=== PATIENT | male | born 1950 | race Caucasian/White ===

== ENCOUNTER → 2024-03-23 | Outpatient (CLI) | payer MEDICARE, BC, SELFPAY ==
[2024-03-23 15:48] LABS: Collection Type, Urine Clean Catch; Squamous Epithelial Cell,Urine 0 /hpf (0-5)
[2024-03-23 16:22] LABS: Basophils # (Auto) 0.1 Thou/mm3 (0.0-0.2); Basophils % (Auto) 1 % (0-2.5); Eosinophils # (Auto) 0.5 Thou/mm3 (0.0-0.5); Eosinophils % (Auto) 7 % (0-10); Hematocrit 38.7 % (41.0-53.0); Hemoglobin 12.8 g/dL (13.5-16.0); Immature Granulocytes % (Auto) 0 % (0-0); Immature Granulocytes Auto 0.01 Thou/mm3 (0.00-0.00); Lymphocytes # (Auto) 0.8 Thou/mm3 (1.0-4.8); Lymphocytes % (Auto) 11 % (10-50); Mean Corpuscular HGB Conc 33.1 g/dl (31.0-37.0); Mean Corpuscular Hemoglobin 29.9 pg (25.0-35.0); Mean Corpuscular Volume 90 fL (80-100); Monocytes # (Auto) 0.7 Thou/mm3 (0.0-0.8); Monocytes % (Auto) 11 % (0-12); Neutrophils # (Auto) 4.7 Thou/mm3 (1.8-7.7); Neutrophils % (Auto) 70 % (37-80); Nucleated Red Blood Cell % 0 /100 WBC (0); Platelet Count 266 Thou/mm3 (140-440); RDW Standard Deviation 44.1 fL (35.1-43.9); Red Blood Count 4.28 Miln/mm3 (4.50-5.90); White Blood Count 6.8 Thou/mm3 (3.8-10.6)
[2024-03-23 16:28] LABS: Bilirubin,Urine Negative (Negative); Blood,Urine Negative (Negative); Clarity,Urine Clear (Clear/Hazy); Color,Urine Lt-Yellow (Lt Yel-Yel); Culture Indicated,Urine Not Indicated; Glucose, Urine Negative (Negative); Ketones,Urine Negative (Negative); Leukocyte Esterase,Urine Negative (Negative); Nitrite,Urine Negative (Negative); Protein,Urine Negative (Neg - Trace); RBC,Urine 2 /hpf (0-3); Specific Gravity,Urine 1.015 (1.001-1.035); Urobilinogen,Urine Negative mg/dL (0.0-1.0); WBC,Urine 1 /hpf (0-5)
[2024-03-23 16:37] LABS: Creatinine MALB Rnd Ur 99 mg/dL (30-125); Microalbumin Creat Ratio 15 mg/gCrea (<30); Microalbumin, Random Urine 15 mg/L (0-300)
[2024-03-23 16:50] LABS: Iron 68 mcg/dL (65-175); Percent Iron Saturation 18 % (20-55); Total Iron Binding Capacity 368 mcg/dL (250-425); Unsaturated Iron Binding 300 (225-295)
[2024-03-23 16:51] LABS: Albumin, Serum 4.5 gm/dL (3.4-4.8); Anion Gap 6 (7-16); BUN/Creatinine Ratio 14 Ratio (12-20); Blood Urea Nitrogen 19 mg/dL (9-23); Calcium 9.5 mg/dL (8.3-10.6); Calcium (Corrected) 9.5 mg/dL (8.5-10.1); Carbon Dioxide 27.3 mMol/L (20.0-31.0); Chloride 105 mMol/L (98-107); Creatinine (Component) 1.4 mg/dL (0.6-1.3); Glucose 87 mg/dL (74-106); Osmolality,Calculated 276 (275-295); Phosphorous 4.1 mg/dL (2.4-5.1); Potassium 4.5 mMol/L (3.4-5.1); Sodium 138 mMol/L (136-145); eGFR 54 See Note
== END | disposition home or self-care (01) ==
LOC: COPL 15:02
PROVIDERS: PCP Specialist; Referring Provider Specialist; Visit Provider Specialist
DX: N18.9 Chronic kidney disease, unspecified (principal)
CPT/HCPCS: 36415; 80069; 81001; 82043; 82570; 83540; 83550; 85025

== ENCOUNTER 2024-04-28 06:40 | Day surgery (SDC) | payer MEDICARE, BC, SELFPAY ==
[2024-04-26 08:50] VITALS: BMI 28.7
--- NOTE | 2024-04-26 09:11 | SUR.PREOP ---
Pt has a cyst removed on his back, last Thrusday and has sutures and dressing on.
[2024-04-26 10:39] LABS: Basophils # (Auto) 0.1 Thou/mm3 (0.0-0.2); Basophils % (Auto) 1 % (0-2.5); Eosinophils # (Auto) 0.5 Thou/mm3 (0.0-0.5); Eosinophils % (Auto) 8 % (0-10); Hematocrit 41.5 % (41.0-53.0); Hemoglobin 13.7 g/dL (13.5-16.0); Immature Granulocytes % (Auto) 0 % (0-0); Immature Granulocytes Auto 0.01 Thou/mm3 (0.00-0.00); Lymphocytes # (Auto) 0.7 Thou/mm3 (1.0-4.8); Lymphocytes % (Auto) 11 % (10-50); Mean Corpuscular Hemoglobin 29.6 pg (25.0-35.0); Mean Corpuscular Volume 90 fL (80-100); Monocytes # (Auto) 0.7 Thou/mm3 (0.0-0.8); Monocytes % (Auto) 11 % (0-12); Neutrophils # (Auto) 4.5 Thou/mm3 (1.8-7.7); Neutrophils % (Auto) 69 % (37-80); Nucleated Red Blood Cell % 0 /100 WBC (0); Platelet Count 245 Thou/mm3 (140-440); RDW Standard Deviation 42.7 fL (35.1-43.9); Red Blood Count 4.63 Miln/mm3 (4.50-5.90); White Blood Count 6.6 Thou/mm3 (3.8-10.6)
[2024-04-26 10:54] LABS: Alanine Aminotransferase 21 U/L (10-49); Albumin, Serum 4.8 gm/dL (3.4-4.8); Albumin/Globulin Ratio 1.8 (1.2-2.2); Alkaline Phosphatase 112 U/L (46-116); Anion Gap 5 (7-16); Aspartate Amino Transferase 27 U/L (0-34); BUN/Creatinine Ratio 13 Ratio (12-20); Bilirubin,Total 0.5 mg/dL (0.3-1.2); Blood Urea Nitrogen 21 mg/dL (9-23); Calcium 9.5 mg/dL (8.3-10.6); Calcium (Corrected) 9.5 mg/dL (8.5-10.1); Carbon Dioxide 26.8 mMol/L (20.0-31.0); Chloride 105 mMol/L (98-107); Creatinine (Component) 1.6 mg/dL (0.6-1.3); Estimated Creatinine Clearance 46.5 mL/min (>60); Globulin 2.6 gm/dL (2.3-3.5); Glucose 106 mg/dL (74-106); Osmolality,Calculated 276 (275-295); Potassium 4.1 mMol/L (3.4-5.1); Sodium 137 mMol/L (136-145); Total Protein 7.4 gm/dL (5.7-8.2); eGFR 46 See Note
[2024-04-26 11:22] LABS: INR 0.9 (0.9-1.3); Partial Thromboplastin Time 25.9 Seconds (22.0-36.0); Prothrombin Time 10.4 Seconds (9.0-12.2)
--- NOTE | 2024-04-26 14:51 | SUR.PREOP ---
Cardiac records reviewed with Dr Frey.
--- NOTE | 2024-04-27 15:26 | SUR.PREOP ---
Pt notified to come in at 0630 tomorrow for surgery.
[2024-04-28] VITALS (12 sets, daily range): BP systolic 120–159; BP diastolic 71–85; PULSE 53–69; RESP 14–23; TEMP 36.4–37; O2SAT 94–97; BMI 28.9
[2024-04-28] MEDS: ALBUTEROL RT 2.5 MG/3 ML NEBU INH (08:19)
[2024-04-28] MEDS: RINGERS LACTATED 1000 ML 1,000 ML 20 ML IV (08:30)
--- NOTE | 2024-04-28 09:50 | ESOP_ITS ---
Date of Procedure 04/28/24 Pre Op Diagnosis Symptomatic varicose veins right lower extremity Post Op Diagnosis Same as preop diagnosis Procedure Varicose vein excisions right lower extremity through 38 separate incisions Findings All marked varicose veins were either removed or disrupted Procedure Description With the patient standing the preop area all varicose veins to be removed were carefully marked with a sharpie pen. The patient was brought to the operating room and general anesthesia was established. The right lower extremity s terilely prepped and draped. The varicose vein excision procedure was performed by making a small skin kelli in the marked areas with a #11 blade then bluntly enlarging the incision with a small mosquito clamp and sequentially excising or disrupting the veins. After all veins had been either removed or disrupted hemostasis was obtained, the leg was cleaned, the wounds were reapproximated with Steri-Strips and a dressing of sterile gauze Curlex and an Darrin wrap was then placed the patient woke well from anesthesia was moved to recovery in stable condition Anesthesia other (Laryngeal mask anesthesia) Pathology / specimen Other (Varicose veins) Estimated Blood Loss 125 Condition Stable Disposition PACU Surgeon Jr Lucas MD Surgical Staff Operation Date: 04/28/24 08:30 Case Staff Anesthesiologist: Lanre Yin
--- NOTE | 2024-04-28 10:09 | SUR.PHASEI ---
pt received from OR in recovery bay 1. pt asleep but responds to voice, breathing unlabored on 8l oxymask, v/s stable. pt dressing to right lower extremity cdi. report received from Dr. Yin and Chloe CHANG.
--- NOTE | 2024-04-28 10:36 | SUR.PHASEI ---
pt able to tolerate oral fluids without difficulty swallowing or nausea/vomiting.
--- NOTE | 2024-04-28 12:10 | SUR.PHASEII ---
1148: pt resting comfortably in [facility], VS stable, breathing unlabored, dressing to right lower extremity clean, dry, and intact, family called-awaiting arrival, report from Gavino CHANG 1220: pt resting comfortably in [facility], discharge instructions given with at bedside, VS stable and monitors disconnected, report given to Gavino CHANG
--- NOTE | 2024-04-28 12:40 | SUR.PHASEII ---
pt awake and alert, breathing unlabored on room air. v/s stable. pt dressing to right lower extremity cdi. pt able to ambulate to wheelchair with steady gait, no bleeding noted after pt ambulated. d/c instructions given with in room, all questions answered. pt d/c via wheelchair with all belongings.
== END 2024-04-28 12:40 | disposition home or self-care (01) ==
LOC: S2EX 10:30
PROVIDERS: Anesthesiology; PCP Specialist; Referring Provider Surgery Vascular Surgery; Visit Provider Surgery Vascular Surgery
PROC: (CPT 36475; principal; 2024-04-28 08:30)
DX: I83.811 Varicose veins of right lower extremity with pain (principal)
CPT/HCPCS: 37765; 37766; 36415; 80053; 85025; 85610; 85730; A4217; C1894; J0461; J0690; J1885; J2250; J2371; J2405; J2704; J2765; J3010; J7050; J7120

== ENCOUNTER → 2024-06-17 | Outpatient (CLI) | payer MEDICARE, BC, SELFPAY ==
--- NOTE | 2024-06-17 12:22 | XR_ITS ---
Examination: Wrist, right 3 views Technique: Wrist AP, oblique, lateral 3 views Date and time of exam: June 17, 2024 1214 hours INDICATIONS: Right wrist swelling and pain beginning 3 days ago. FINDINGS: Advanced osteoarthritis right first carpometacarpal joint No fracture or dislocation No erosive arthritis IMPRESSION: Advanced osteoarthritis right first carpometacarpal joint
--- NOTE | 2024-06-17 12:22 | XR_ITS ---
Examination: Hand, right 3 views Technique: Hand AP, oblique, lateral 3 views Date and time of exam: June 17, 2024 1214 hours INDICATIONS: Right hand and wrist swelling and pain beginning 3 days ago. FINDINGS: Significant osteopenia Advanced osteoarthritis first carpometacarpal joint Significant osteoarthritis second metacarpal phalangeal joint No erosive arthritis No fracture No cortical bone destruction IMPRESSION: Advanced osteoarthritis first carpometacarpal joint Significant osteoarthritis second metacarpal phalangeal joint
== END | disposition home or self-care (01) ==
PROVIDERS: PCP Specialist; Referring Provider Specialist; Visit Provider Specialist
DX: M18.11 Unilateral primary osteoarthritis of first carpometacarpal joint, right hand (principal); M19.041 Primary osteoarthritis, right hand
CPT/HCPCS: 73110; 73130

== ENCOUNTER 2024-06-18 14:31 | Emergency (ER) | payer MEDICARE, BC, SELFPAY ==
[2024-06-18 14:31] VITALS: BMI 28.0
[2024-06-18 15:00] VITALS: BP 172/91; PULSE 76; RESP 20; TEMP 36.8; O2SAT 95
--- NOTE | 2024-06-18 15:12 | XR_ITS ---
Examination: Duplex scan of the upper extremity, unilateral right complete Date and time of exam: June 18, 2024 at 1557 hrs. Indications: Right hand swelling and pain beginning 4 days ago Technique: Duplex scan of the extremity veins using B-mode/grayscale imaging and Doppler spectral analysis and color flow Attention is directed to internal echogenicity, compression and augmentation involving these veins, color flow assessment, spectral analysis Findings: Major deep venous structures in the extremity demonstrate normal course and caliber. There is no evidence of deep vein thrombosis. Normal color flow and spectral analysis Impression: Negative for DVT..
--- NOTE | 2024-06-18 15:12 | XR_ITS ---
Examination: Hand, right 3 views Technique: Hand AP, oblique, lateral 3 views Date and time of exam: June 18, 2024 1522 hrs. Indications: Swollen hand 4 days Findings: Advanced osteoarthritis first carpometacarpal joint Soft tissue swelling dorsum of the hand No cortical bone destruction No opaque foreign body Impression: No cortical bone destruction No opaque foreign body
--- NOTE | 2024-06-18 15:12 | PD.EDRME ---
Rapid Medical Screening Exam RME Arrival date/time: 06/18/24 14:31 73-year-old male presents to the Emergency Department today complaints of swelling to his right hand patient was seen by PCP yesterday was given injection of antibiotics patient reports redness has decreased but still has swelling to his right hand Chief Complaint: Extremity Injury, Upper Vital signs: Vital Signs Temperature 98.2 F 06/18/24 15:00 Pulse Rate 76 06/18/24 15:00 Respiratory Rate 20 06/18/24 15:00 Blood Pressure 172/91 H 06/18/24 15:00 Pulse Oximetry (%) 95 06/18/24 15:00 Oxygen Delivery Method Room Air 06/18/24 15:00
[2024-06-18 15:32] LABS: Basophils # (Auto) 0.1 Thou/mm3 (0.0-0.2); Basophils % (Auto) 1 % (0-2.5); Eosinophils # (Auto) 0.5 Thou/mm3 (0.0-0.5); Eosinophils % (Auto) 5 % (0-10); Hematocrit 36.9 % (41.0-53.0); Immature Granulocytes % (Auto) 0 % (0-0); Immature Granulocytes Auto 0.03 Thou/mm3 (0.00-0.00); Lymphocytes # (Auto) 0.7 Thou/mm3 (1.0-4.8); Lymphocytes % (Auto) 7 % (10-50); Mean Corpuscular HGB Conc 32.5 g/dl (31.0-37.0); Mean Corpuscular Hemoglobin 28.8 pg (25.0-35.0); Mean Corpuscular Volume 89 fL (80-100); Monocytes % (Auto) 11 % (0-12); Neutrophils # (Auto) 6.8 Thou/mm3 (1.8-7.7); Neutrophils % (Auto) 76 % (37-80); Nucleated Red Blood Cell % 0 /100 WBC (0); Platelet Count 227 Thou/mm3 (140-440); RDW Standard Deviation 43.8 fL (35.1-43.9); Red Blood Count 4.17 Miln/mm3 (4.50-5.90)
[2024-06-18 15:53] LABS: Alanine Aminotransferase 19 U/L (10-49); Albumin, Serum 4.4 gm/dL (3.4-4.8); Albumin/Globulin Ratio 1.5 (1.2-2.2); Alkaline Phosphatase 102 U/L (46-116); Anion Gap 9 (7-16); Aspartate Amino Transferase 21 U/L (0-34); BUN/Creatinine Ratio 15 Ratio (12-20); Bilirubin,Total 0.4 mg/dL (0.3-1.2); Blood Urea Nitrogen 19 mg/dL (9-23); C-Reactive Protein 7.5 mg/dL (0.0-0.9); Calcium 9.7 mg/dL (8.3-10.6); Calcium (Corrected) 9.7 mg/dL (8.5-10.1); Chloride 106 mMol/L (98-107); Creatinine (Component) 1.3 mg/dL (0.6-1.3); Estimated Creatinine Clearance 56.7 mL/min (>60); Globulin 2.9 gm/dL (2.3-3.5); Glucose 98 mg/dL (74-106); Osmolality,Calculated 281 (275-295); Potassium 4.3 mMol/L (3.4-5.1); Sodium 140 mMol/L (136-145); Total Protein 7.3 gm/dL (5.7-8.2); eGFR 59 See Note
--- NOTE | 2024-06-18 21:40 | PC.NURSE ---
PT CALLED FROM THE LOBBY WITH NO ANSWER X1
== END 2024-06-18 23:52 | disposition left against medical advice (07) ==
PROVIDERS: Nurse Practitioner Primary Care; Emergency Provider Emergency Medicine; PCP Specialist
DX: M79.89 Other specified soft tissue disorders (principal); Z53.29 Procedure and treatment not carried out because of patient's decision for other reasons
CPT/HCPCS: 36415; 73130; 80053; 85025; 86140; 93971; 99281

== ENCOUNTER 2024-06-19 03:10 | Emergency (ER) | payer MEDICARE, BC, SELFPAY ==
[2024-06-19 03:11] VITALS: BMI 28.0
[2024-06-19 03:18] VITALS: BP 168/90; PULSE 97; RESP 19; TEMP 36.4; O2SAT 95
--- NOTE | 2024-06-19 04:09 | XR_ITS ---
Examination: CT right upper extremity with intravenous contrast 2-D sagittal reconstructions. 2-D coronal reconstructions. 3-D reconstructions. Date and time of exam:June 19, 2024 0811 hrs. Indications: Right hand forearm swelling and pain beginning 5 days ago CTDI: vol (mGy):4.63 DLP: (mGycm):179 Technique: Multiple 1.25 mm axial sections of the right forearm hand with intravenous contrast, 50 cc Isovue-370 have been obtained. 2-D sagittal and coronal reconstructions have been obtained. 3-D reconstructions have been obtained. Low dose protocols were performed. One or more of the following dose reduction techniques were used; automated exposure control, adjustment of the mA and/or KV according to patient size, use of iterative reconstruction technique. Findings: The entire study is degraded by continual patient motion Advanced osteoarthritis first carpometacarpal joint No darline cortical bone destruction No endosteal scalloping No opaque foreign body No soft tissue abscess depicted Impression: The entire study is degraded by continual patient motion Advanced osteoarthritis first carpometacarpal joint No darline cortical bone destruction No opaque foreign body No soft tissue abscess Consider elective MRI hand without contrast follow-up, if the patient can cooperate
--- NOTE | 2024-06-19 04:12 | PD.EDRME ---
Rapid Medical Screening Exam RME Arrival date/time: 06/19/24 03:10 73M with history of BPH presents to ED with several days of worsening RUE pain and swelling. Patient was here earlier today with normal US. Patient was given Keflex and Rocephin from clinic w/o relief. Chief Complaint: Hand/Wrist Problems Vital signs: Vital Signs Temperature 97.6 F 06/19/24 03:18 Pulse Rate 97 06/19/24 03:18 Respiratory Rate 19 06/19/24 03:18 Blood Pressure 168/90 H 06/19/24 03:18 Pulse Oximetry (%) 95 06/19/24 03:18 Oxygen Delivery Method Room Air 06/19/24 03:18
[2024-06-19 04:51] LABS: Lactate (Lactic Acid) 0.7 mMol/L (0.4-2.0)
[2024-06-19 05:43] LABS: C-Reactive Protein 7.4 mg/dL (0.0-0.9); Procalcitonin 0.12 ng/ml (0.0-0.49)
[2024-06-19 06:05] LABS: Amphetamine/Methamp Scrn,U Positive (Negative); Barbiturate Screen,Urine Negative (Negative); Benzodiazepines Screen,Urine Negative (Negative); Benzoylecgonine Screen, Ur Negative (Negative); Fentanyl Screen,Urine Negative (Negative); Opiate Screen,Urine Negative (Negative); THC Screen,Urine Positive (Negative)
[2024-06-19 06:38] VITALS: BP 179/99; PULSE 86; RESP 18; TEMP 36.9; O2SAT 97
--- NOTE | 2024-06-19 06:55 | PC.NURSE ---
Swelling to RT hand noted, started since last Thursday per pt. Rt hand warm, strong pulse, and cap refill < 2 sec.
[2024-06-19 07:00] VITALS: BP 170/103; PULSE 79; RESP 25; TEMP 37.1; O2SAT 95
[2024-06-19] MEDS: MORPHINE SULF INJ 10 MG/ML VIAL 5 MG IVP (07:46)
--- NOTE | 2024-06-19 07:51 | PC.NURSE ---
PT RIGHT HAND SWOLLEN, RED, AND WARM TO TOUCH. REPORTS 10/10 PAIN TO RIGHT AND AND RIGHT ELBOW. IV PLACED, PT WAITING ON CT, UPDATED ON PLAN OF CARE AND IN AGREEMENT. CALL ANDREWS IN REACH.
--- NOTE | 2024-06-19 10:31 | EDNOTE_ITS ---
ED General RME/HPI General Chief complaint: Hand/Wrist Problems Stated complaint: RT HAND SWELLING Time Seen by Provider: 06/19/24 10:24 Arrival date/time: 06/19/24 03:10 RME / HPI RME / HPI narrative: 06/19/24 03:10 73M with history of BPH presents to ED with several days of worsening RUE pain and swelling. Patient was here earlier today with normal US. Patient was given Keflex and Rocephin from clinic w/o relief. 73-year-old male with a history of chronic inflammation and arthritis of the base of his right thumb who presents with recurrence and worsening of the pain and swelling where it is now traveling throughout his hand and up his forearm. Patient denies fevers chills or sweats. He is having normal appetite. Is received Rocephin 2 dosages ( and Thursday) from his primary care doctor, Dr Browning, and is currently on Keflex. Related Data Home Medications ?Medication ?Instructions ?Recorded ?Confirmed tamsulosin 0.4 mg capsule (Flomax) 0.4 mg PO BID ##0 0 10/29/16 04/28/24 finasteride 5 mg tablet (Proscar) 5 mg PO HS #0 tabs 1 06/07/16 04/28/24 atorvastatin 40 mg tablet 40 mg PO QPM 12/29/23 clopidogrel 75 mg tablet 75 mg PO QDAY 12/29/2304/26 metoprolol succinate 25 mg 25 mg PO QDAY 12/29/2304/17 tablet,extended release 24 hr Previous Rx's ?Medication ?Instructions ?Recorded ibuprofen 600 mg tablet 600 mg PO Q8H PRN pain #14 t abs 06/19/24 Allergies Allergy/AdvReac Type Severity Reaction Status Date / Time No Known Allergies Allergy Verified 06/18/24 14:34 ED Exam Narrative Physical exam: GENERAL APPEARANCE: AxOx4, generally well-appearing, no acute distress. HEART: Normal rate and regular rhythm, normal S1/S1, no m/r/g LUNGS: CTAB, moving air well. No crackles or wheezes are heard. BACK: No midline C/T/L spine pain or deformity, No CVAT, no obvious deformity. EXTREMITIES: Without cyanosis, clubbing or edema. MUSCULOSKELETAL: Right hand with circumferential swelling from the wrist throughout his hand in a glove distribution, with a fulcrum of swelling around the base of his first metacarpal. The base of the first metacarpal has tenderness to palpation. The remaining swelling around his hand has no tenderness, no tenderness with flexion of the fingers, and no tenderness of palpation along the flexor tendon surface. There is some mild pink discoloration of the hand without redness or warmth. He has mild redness and swelling over the lateral aspect of his right olecranon, without swelling within the joint or around the elbow joint. He has mild tenderness with range of motion of the right elbow. FROM of remaining all major joints, no chest tenderness NEUROLOGICAL: Grossly nonfocal. Alert and oriented, moving all 4 extremities. CN not formally tested but appear grossly intact. Observed to ambulate with normal gait. Skin: Warm and dry without any rash. Course Quality Measures none Orders Category Date Time Status CT Screening NOW Care 06/19/24 04:10 Completed Insert IV NOW Care 06/19/24 04:[address] UE RT w con Stat Exams 06/19/24 04:09 Completed CRP [C-Reactive Protein] Stat Lab 06/19/24 04:30 Completed Drug Screen,Urine Stat Lab 06/19/24 05:14 Completed Lactate (Lactic Acid) Stat Lab 06/19/24 04:30 Completed Procalcitonin Stat Lab 06/19/24 04:30 Completed Uric Acid Stat Lab 06/19/24 14:08 Completed Dexamethasone Inj [Decadron Inj] Med 06/19/24 10:23 Discontinued 10 mg IM X1 ONE Ketorolac Inj [Toradol Inj] Med 06/19/24 10:23 Discontinued 15 mg IVP X1 ONE Morphine Inj Med 06/19/24 04:11 Discontinued 5 mg IVP X1 ONE Reevaluation(s) Reevaluation #1: After steroid administration waiting 3 hours in the emergency department patient notes significant improvement in pain he has full range of motion of the fingers with minimal worsening of pain. Although it was never erythematous it is pink discoloration is now completely resolved. We reviewed all his previous visits, several hand x-rays showing persistent and recurrent degenerative disease at the base of his first metatarsal/thumb. Time: 15:10 Vital Signs Vital signs: Vital Signs Temperature 97.6 F 06/19/24 03:18 Pulse Rate 97 06/19/24 03:18 Respiratory Rate 19 02/02/25 03:18 Blood Pressure 168/90 H 06/19/24 03:18 Pulse Oximetry (%) 95 06/19/24 03:18 Oxygen Delivery Method Room Air 06/19/24 03:18 [facility] Patient data External records reviewed:: [facility] previous records (Including outpatient x-rays of the hand there was send showing DJD of the base of the first metatarsal and compared to hand x-ray in the past with persistent DJD.) Clinical information provided by:: patient Social determinants that could affect healthcare access:: none Patient has the following chronic illnesses:: Coronary artery disease, hypertension How is presenting disease/condition affected by chronic disease/condition?: uneffected by Evaluation data The following diagnostics were reviewed and interpreted by me:: lab results and radiology exam(s) Lab and/or radiology exams considered but not ordered:: As per narrative Interpretation Summary: As per narrative Medications Medications considered but not ordered:: None Medication administrations:: Medication Administration History Discontinued Medications Dexamethasone Sodium Phosphate (Dexamethasone Sod Phos Inj 10 Mg/Ml Vial) 10 mg IM X1 ONE Stop: 06/19/24 10:24 Last Admin: 06/19/24 10:39 Dose: 10 mg Documented By: TM Ketorolac Tromethamine (Ketorolac Inj 30 Mg/Ml Vial) 15 mg IVP X1 ONE Stop: 06/19/24 10:24 Last Admin: 06/19/24 10:39 Dose: 15 mg Documented By: TM Morphine Sulfate (Morphine Sulf Inj 10 Mg/Ml Vial) 5 mg IVP X1 ONE Stop: 06/19/24 04:12 Last Admin: 06/19/24 07:46 Dose: 5 mg Documented By: TM Comments: not given on prev shift Above Consultations Consultation(s) initiated? (list below): No Diagnosis Differential Diagnosis ED Complaint MDM: Inflammatory arthritis, gouty arthritis, polyarticular arthritis. Septic j Most likely diagnosis given after review of the tests above:: Inflammatory arthritis Admission Indicated Admission indicated?: not indicated Explain why admission is indicated or not indicated:: As per narrative Admission Request Was there a request for admission?: No Disposition Plan Disposition Plan: Discharge Discharge Attestation Discharge Attestation: The patient and all family members were given an opportunity to ask questions and understood the discharge instructions. Discharge instructions specifically effects, indications for sooner follow up or return to the emergency department, and the expected course of current diagnosis. Patient condition: Stable Medical Decision Making MDM Narrative MDM Narrative: Mr. Oropeza presents to the emergency department with 4 to 5 days of worsening swelling to his right hand starting at the base of his thumb/wrist area. It is now circumferential around his hand he is got some swelling over the lateral aspect of his right elbow as well. He has had recurrent pain and swelling at the base of his thumb due to arthritis , however has never wrapped around his hand as it is today. He started seeing his primary care doctor and is received 2 doses of IM Rocephin, and is currently on Keflex. He does not endorse symptoms consistent with systemic infection. Exam is consistent with an inflammatory condition, it is swollen, it is pink warm but not hot or cellulitic appearing. He has full range of motion of his fingers including as extension without tenderness along the flexor tendons. This is not a picture consistent with flexor tenosynovitis. Laboratory testing was sent via the RME process which was otherwise unremarkable and significant for a normal white blood cell count, normal lactic acid, and normal procalcitonin. He did have a mildly elevated CRP which suggest an inflammatory process but given a normal procalcito rubio this does fit a bit more of his clinical picture that is more inflammatory without infection. As a result I added a uric acid though suspicion was low given he has not had your traditional monoarticular start for gout, and uric acid came back negative. As we are waiting for the uric acid he was given a dose of anti-inflammatories, Decadron 10 mg IM and monitored in the emergency department. The uric acid returned within normal limits, and on my reevaluation after about 3 hours from administration of Decadron she has significant improvement of his hand it is no longer pink, he is moving his fingers well without significant pain and absolutely no limitations. I am not convinced that this is truly infective, however it since I did not see it during the first days of his antibiotics, I do recommend he continue the Keflex. Steroids will continue in his system for the next 2 to 3 days we will have him continue NSAIDs for 2-3 more days. At this point I think he can monitor at home follow-up with Dr. Browning in 3 days for recheck and if it worsens he should come back to the emergency department. Differential Diagnosis Differential Diagnosis: Inflammatory arthritis, gouty arthritis, polyarticular arthritis. Septic j Lab Data Labs: Lab Results 06/19/24 06/19/24 06/19/24 Range/Units 04:30 05:14 14:08 Lactic Acid 0.7 (0.4-2.0) mMol/L Uric Acid 5.4 (3.7-9.2) mg/dL C-Reactive Prot, Quant 7.4 H (0.0-0.9) mg/dL Procalcitonin 0.12 (0.0-0.49) ng/ml Urine Opiates Screen Negative (Negative) Urine Fentanyl Screen Negative (Negative) Ur Barbiturates Screen Negative (Negative) U Amphetamin/Meth Scrn Positive A (Negative) U Benzodiazepines Scrn Negative (Negative) U Cocaine Metab Screen Negative (Negative) U Marijuana (THC) Screen Positive A (Negative) Discharge Plan Plan Patient Disposition: HOME (Self Care) Prescriptions/Referrals Prescriptions/Med Rec: New ibuprofen 600 mg tablet 600 mg PO Q8H PRN (Reason: pain) Qty: 14 0RF No Action tamsulosin [Flomax] 0.4 MG capsule,extended release 24hr 0.4 mg PO BID Qty: 0 finasteride [Proscar] 5 MG tablet 5 mg PO HS Qty: 0 atorvastatin 40 mg Tablet 40 mg PO QPM clopidogrel 75 mg Tablet 75 mg PO QDAY metoprolol succinate 25 mg Tablet Extended Release 24 Hr 25 mg PO QDAY Referrals: Albin Browning MD [Primary Care Provider] - In 1 week Problem List Clinical Impression: Chronic inflammatory arthritis Patient/Caregiver Discharge Instructions Education Materials: ED Osteoarthritis Additional Instructions: Follow-up with your primary care doctor in 3 to 5 days for recheck. Feel free return to the emergency department sooner if symptoms worsen or if you notice any new, concerning issues. Print Language: [place] Island[place] Stand Alone Forms: [facility]raddha Award Info., Patient Portal Info Letter
[2024-06-19] MEDS: DEXAMETHASONE SOD PHOS INJ 10 MG/ML VIAL IM (10:39)
[2024-06-19] MEDS: KETOROLAC INJ 30 MG/ML VIAL 15 MG IVP (10:39)
[2024-06-19 11:39] VITALS: BP 149/77; PULSE 93; RESP 18; TEMP 37; O2SAT 95
[2024-06-19 14:32] LABS: Uric Acid 5.4 mg/dL (3.7-9.2)
[2024-06-19 15:56] VITALS: BP 180/99; PULSE 78; O2SAT 94
--- NOTE | 2024-06-19 17:47 | PC.NURSE ---
AFTER PT WAS DISCHARGED HOME, WHILE CLEANING ER BED 10 [employer] FOUND. PT CALLED WITH NO ANSWER. MESSAGE LEFT. WALLET PLACED WITH REGISTRATION TO PLACE IN SAFE.
== END 2024-06-19 15:57 | disposition home or self-care (01) ==
PROVIDERS: Physician Assistant; Emergency Provider Emergency Medicine; PCP Specialist
DX: M19.041 Primary osteoarthritis, right hand (principal)
CPT/HCPCS: 36415; 73201; 80307; 83605; 84145; 84550; 86140; 96372; 96374; 96375; 99284; A4649; J1100; J1885; J2270; Q9967

== ENCOUNTER → 2024-08-31 | Outpatient (CLI) | payer MEDICARE, BC, SELFPAY ==
--- NOTE | 2024-08-31 08:15 | XR_ITS ---
Examination: MRI right wrist, without contrast Date and time of exam: August 31, 2024 0848 hours INDICATIONS: Right wrist pain tenderness to touch beginning 2 months ago Technique: Multiple axial sagittal and coronal images of the right wrist without intravenous contrast have been obtained with the Siemens high-resolution 1.5 Eliana MRI scanner. Images obtained include T2-weighted fat-suppressed sagittal sections, TR 3500, TE 46, T2 weighted coronal fat suppressed images, TR 3050, TE 84, T2-weighted transverse fat suppressed images, TR 3260, TE 63, proton density transverse images, TR 4720 TE 46, and T1 weighted coronal images, TR 560, TE 13. Findings: Small areas of cystic change in the carpal bones Moderate narrowing radiocarpal joint Intact triangular fibrocartilage Significant osteoarthritis first carpometacarpal joint Intact flexor tendons with normal median nerve Diffuse tendinitis wrist extensor tendons, more severe extensor indicis proprius extensor digitorum communis No ganglion cyst No avascular necrosis, no fracture Thickening of the extensor digitorum communis IMPRESSION: Moderate narrowing radiocarpal joint Advanced osteoarthritis first carpometacarpal joint Extensive tendinitis wrist extensor tendons
== END | disposition home or self-care (01) ==
LOC: SMRI 08:08
PROVIDERS: PCP Specialist; Referring Provider Internal Medicine Rheumatology; Visit Provider Internal Medicine Rheumatology
DX: M18.11 Unilateral primary osteoarthritis of first carpometacarpal joint, right hand (principal); M25.831 Other specified joint disorders, right wrist; M67.833 Other specified disorders of tendon, right wrist
CPT/HCPCS: 73221

== ENCOUNTER → 2024-10-13 | Outpatient (CLI) | payer MEDICARE, BC, SELFPAY ==
--- NOTE | 2024-10-13 15:24 | XR_ITS ---
Examination: CT chest, without intravenous contrast. Sagittal and coronal 2-D reconstructions. Exam date and time: October 13, 2024 1709 hours Comparison September 20, 2013 INDICATION: Increasing shortness of breath 6 months CTDI:vol (mGy) 9.95 DLP: (mGycm) 404 Technique: Multiple 3.0 mm axial sections of the chest to been obtained. Bone and lung density settings are obtained. Sagittal and coronal 2-D reconstructions have been obtained. Low dose protocols were performed. One or more of the following dose reduction techniques were used; automated exposure control, adjustment of the mA and/or KV according to patient size, use of iterative reconstruction technique. Findings: No thoracic aortic aneurysm dilatation Pulmonary artery segments are nonenlarged No paratracheal tracheobronchial or bronchopulmonary adenopathy COPD with areas of airspace destruction [id number] pulmonary fibrosis 2 mm pulmonary nodule right upper lobe image 71 6 mm pulmonary nodule right middle lobe image 221 2 mm pulmonary nodule right middle lobe image 233 2 mm pulmonary nodule lingular segment image 244 4 mm pulmonary nodule right lower lobe image 284 No visualized liver or splenic lesion Contracted gallbladder Kidneys partially visualized no hydronephrosis Significant osteopenia Advanced diffuse thoracic degenerative disc disease IMPRESSION: COPD Mild to moderate pulmonary fibrosis Numerous bilateral subcentimeter pulmonary nodules, not visualized on the 2014 exam, recommend continued 6 month follow-up CT chest without contrast
== END | disposition home or self-care (01) ==
PROVIDERS: PCP Specialist; Referring Provider Specialist; Visit Provider Specialist
DX: Z12.2 Encounter for screening for malignant neoplasm of respiratory organs (principal); J44.9 Chronic obstructive pulmonary disease, unspecified; R91.8 Other nonspecific abnormal finding of lung field; J84.10 Pulmonary fibrosis, unspecified
CPT/HCPCS: 71250

== ENCOUNTER → 2024-10-17 | Outpatient (CLI) | payer MEDICARE, BC, SELFPAY ==
[2024-10-17 12:56] LABS: Basophils % (Auto) 1 % (0-2.5); Eosinophils # (Auto) 0.4 Thou/mm3 (0.0-0.5); Eosinophils % (Auto) 5 % (0-10); Hematocrit 33.1 % (41.0-53.0); Hemoglobin 11.1 g/dL (13.5-16.0); Immature Granulocytes % (Auto) 0 % (0-0); Immature Granulocytes Auto 0.01 Thou/mm3 (0.00-0.00); Immature Reticulocyte Fraction 10.8 % (2.3-13.4); Lymphocytes # (Auto) 0.4 Thou/mm3 (1.0-4.8); Lymphocytes % (Auto) 5 % (10-50); Mean Corpuscular HGB Conc 33.5 g/dl (31.0-37.0); Mean Corpuscular Hemoglobin 29.2 pg (25.0-35.0); Mean Corpuscular Volume 87 fL (80-100); Monocytes # (Auto) 0.8 Thou/mm3 (0.0-0.8); Monocytes % (Auto) 11 % (0-12); Neutrophils # (Auto) 5.8 Thou/mm3 (1.8-7.7); Neutrophils % (Auto) 78 % (37-80); Nucleated Red Blood Cell % 0 /100 WBC (0); Platelet Count 227 Thou/mm3 (140-440); Reticulocyte % (Auto) 1.3 % (0.5-1.5); Reticulocyte Absolute Auto 47.9 Biln/L (25.0-75.0); Reticulocyte Hgb Content 31.1 pg (28.0-35.0); White Blood Count 7.5 Thou/mm3 (3.8-10.6)
[2024-10-17 13:08] LABS: Creatinine MALB Rnd Ur 142 mg/dL (30-125); Microalbumin Creat Ratio 51 mg/gCrea (<30); Microalbumin, Random Urine 73 mg/L (0-300)
[2024-10-17 13:09] LABS: Iron 30 mcg/dL (65-175); Percent Iron Saturation 8 % (20-55); Prostate Specific Antigen 2.79 ng/mL (0-4.00); Total Iron Binding Capacity 352 mcg/dL (250-425); Unsaturated Iron Binding 322 (225-295)
[2024-10-17 13:10] LABS: Alanine Aminotransferase 41 U/L (10-49); Albumin, Serum 4.3 gm/dL (3.4-4.8); Alkaline Phosphatase 124 U/L (46-116); Anion Gap 12 (7-16); Aspartate Amino Transferase 49 U/L (0-34); BUN/Creatinine Ratio 16 Ratio (12-20); Bilirubin,Total 0.6 mg/dL (0.3-1.2); Blood Urea Nitrogen 28 mg/dL (9-23); Carbon Dioxide 22.4 mMol/L (20.0-31.0); Cardiac Risk Estimate 1.9 RATIO (4.0-6.7); Chloride 108 mMol/L (98-107); Cholesterol 127 mg/dL (132-200); Creatinine (Component) 1.7 mg/dL (0.6-1.3); Globulin 2.2 gm/dL (2.3-3.5); Glucose 111 mg/dL (74-106); HDL Cholesterol 67 mg/dL (40-60); LDL Cholesterol,Calculated 49 mg/dL (0-130); Osmolality,Calculated 289 (275-295); Potassium 4.1 mMol/L (3.4-5.1); Sodium 142 mMol/L (136-145); Thyroid Stimulating Hormone 4.99 uIU/mL (0.55-4.78); Total Protein 6.5 gm/dL (5.7-8.2); Triglycerides 55 mg/dL (30-150); eGFR 43 See Note
[2024-10-17 13:26] LABS: Sed Rate (ESR) 11 mm/hr (0-20)
[2024-10-17 14:40] LABS: Cocci Serology, IgM Negative (Negative)
[2024-10-18 15:08] LABS: Cocci Serology, IgG Negative (Negative)
[2024-10-20 19:47] LABS: Lyme 18 kD IgG Band NON-REACTIVE; Lyme 23 kD IgG Band NON-REACTIVE; Lyme 23 kD IgM Band NON-REACTIVE; Lyme 28 kD IgG Band NON-REACTIVE; Lyme 30 kD IgG Band NON-REACTIVE; Lyme 39 kD IgG Band NON-REACTIVE; Lyme 39 kD IgM Band NON-REACTIVE; Lyme 41 kD IgG Band NON-REACTIVE; Lyme 45 kD IgG Band NON-REACTIVE; Lyme 58 kD IgG Band REACTIVE; Lyme 66 kD IgG Band NON-REACTIVE; Lyme 93 kD IgG Band NON-REACTIVE; Lyme Disease Ab (IgG),Blot NEGATIVE; Lyme Disease Ab (IgM),Blot NEGATIVE
[2024-10-21 07:07] LABS: Lyme 41 kD IgM Band NON-REACTIVE
== END | disposition home or self-care (01) ==
LOC: COPL 11:39
PROVIDERS: PCP Specialist; Referring Provider Specialist; Visit Provider Specialist
DX: D50.0 Iron deficiency anemia secondary to blood loss (chronic) (principal); M19.041 Primary osteoarthritis, right hand; N18.32 Chronic kidney disease, stage 3b; R91.8 Other nonspecific abnormal finding of lung field; I73.9 Peripheral vascular disease, unspecified; N40.1 Benign prostatic hyperplasia with lower urinary tract symptoms
CPT/HCPCS: 36415; 80053; 80061; 82043; 82570; 83540; 83550; 84153; 84443; 85025; 85046; 85652; 86140; 86331; 86617; 86635

== ENCOUNTER → 2025-01-31 | Outpatient (CLI) | payer MEDICARE, BC, SELFPAY ==
[2025-01-31 16:40] LABS: Basophils # (Auto) 0.0 Thou/mm3 (0.0-0.2); Basophils % (Auto) 1 % (0-2.5); Eosinophils # (Auto) 0.9 Thou/mm3 (0.0-0.5); Eosinophils % (Auto) 14 % (0-10); Hematocrit 26.5 % (41.0-53.0); Immature Granulocytes Auto 0.05 Thou/mm3 (0.00-0.00); Lymphocytes # (Auto) 0.4 Thou/mm3 (1.0-4.8); Lymphocytes % (Auto) 6 % (10-50); Mean Corpuscular HGB Conc 32.5 g/dl (31.0-37.0); Mean Corpuscular Hemoglobin 29.0 pg (25.0-35.0); Mean Corpuscular Volume 89 fL (80-100); Monocytes # (Auto) 1.0 Thou/mm3 (0.0-0.8); Monocytes % (Auto) 16 % (0-12); Neutrophils # (Auto) 4.0 Thou/mm3 (1.8-7.7); Neutrophils % (Auto) 63 % (37-80); Nucleated Red Blood Cell # 0.00 Thou/mm3 (0.00-0.00); Nucleated Red Blood Cell % 0 /100 WBC (0); Platelet Count 191 Thou/mm3 (140-440); RDW Standard Deviation 64.2 fL (35.1-43.9); Red Blood Count 2.97 Miln/mm3 (4.50-5.90); White Blood Count 6.4 Thou/mm3 (3.8-10.6)
[2025-01-31 16:46] LABS: Hemoglobin 8.6 g/dL (13.5-16.0)
[2025-01-31 16:47] LABS: Creatinine,Random Urine 106 mg/dL (30-125); Protein Total, Random Urine 35 mg/dL (1-14); Sodium,Urine Random 22.5 mMol/L (20.0-110.0)
[2025-01-31 16:51] LABS: Albumin, Serum 4.2 gm/dL (3.4-4.8); Anion Gap 10 (7-16); BUN/Creatinine Ratio 11 Ratio (12-20); Blood Urea Nitrogen 21 mg/dL (9-23); Calcium 9.0 mg/dL (8.3-10.6); Calcium (Corrected) 9.0 mg/dL (8.5-10.1); Carbon Dioxide 23.1 mMol/L (20.0-31.0); Chloride 107 mMol/L (98-107); Creatinine (Component) 1.9 mg/dL (0.6-1.3); Glucose 99 mg/dL (74-106); Osmolality,Calculated 282 (275-295); Phosphorous 3.9 mg/dL (2.4-5.1); Potassium 4.1 mMol/L (3.4-5.1); Sodium 140 mMol/L (136-145); Vitamin D 25 Hydroxy Total 37.0 ng/mL (7.3-40.2); eGFR 37 See Note
== END | disposition home or self-care (01) ==
LOC: COPL 15:16
PROVIDERS: PCP Specialist; Referring Provider Internal Medicine; Visit Provider Internal Medicine
DX: R94.4 Abnormal results of kidney function studies (principal)
CPT/HCPCS: 36415; 80069; 82306; 82570; 84156; 84300; 85025

== ENCOUNTER → 2025-02-21 | Outpatient (CLI) | payer MEDICARE, BC, SELFPAY ==
[2025-02-21 17:46] LABS: Albumin, Serum 4.2 gm/dL (3.4-4.8); Anion Gap 10 (7-16); BUN/Creatinine Ratio 10 Ratio (12-20); Blood Urea Nitrogen 19 mg/dL (9-23); Calcium 9.3 mg/dL (8.3-10.6); Calcium (Corrected) 9.3 mg/dL (8.5-10.1); Carbon Dioxide 22.3 mMol/L (20.0-31.0); Chloride 107 mMol/L (98-107); Creatinine (Component) 1.9 mg/dL (0.6-1.3); Glucose 105 mg/dL (74-106); Osmolality,Calculated 279 (275-295); Phosphorous 3.4 mg/dL (2.4-5.1); Potassium 3.7 mMol/L (3.4-5.1); Sodium 139 mMol/L (136-145); eGFR 37 See Note
== END | disposition home or self-care (01) ==
LOC: COPL 16:40
PROVIDERS: PCP Specialist; Referring Provider Internal Medicine; Visit Provider Internal Medicine
DX: N17.9 Acute kidney failure, unspecified (principal); I10 Essential (primary) hypertension; C34.90 Malignant neoplasm of unspecified part of unspecified bronchus or lung
CPT/HCPCS: 36415; 80069